=== PATIENT | female | born 1980 | race Caucasian/White ===

== ENCOUNTER 2019-01-11 14:29 | Emergency (ER) | payer OTHER ==
[~2019-01-11] VITALS: Ht 154.9 cm; Wt 58.1 kg
== END 2019-01-11 20:32 | disposition home or self-care (01) ==
LOC: ER 14:29
DX: R05 Cough (principal)

== ENCOUNTER 2021-03-19 12:39 | Emergency (ER) | payer OTHER ==
[~2021-03-19] VITALS: Ht 152.4 cm; Wt 65.3 kg
== END 2021-03-19 16:36 | disposition home or self-care (01) ==
LOC: ER 12:39
DX: J02.8 Acute pharyngitis due to other specified organisms (principal)

== ENCOUNTER 2021-09-29 01:20 | Emergency (ER) | payer OTHER ==
[~2021-09-29] VITALS: Ht 157.5 cm; Wt 68.0 kg
[2021-09-29] MEDS ORDERED: INTEGRA PLUS C1 EACH (01:33)
== END 2021-09-29 04:36 ==
LOC: ER 01:20
DX: K62.5 Hemorrhage of anus and rectum (principal); Z88.6 Allergy status to analgesic agent; Z88.2 Allergy status to sulfonamides

== ENCOUNTER 2021-10-06 08:21 | Outpatient (CLI) | payer OTHER ==
[~2021-10-06 08:21] MED LIST: INTEGRA PLUS C1 EACH
== END 2021-10-06 08:34 | disposition home or self-care (01) ==
LOC: TOM 08:21
PROVIDERS: ATTEND Surgery
DX: C18.2 Malignant neoplasm of ascending colon (principal)